=== PATIENT | female | born 1980 | race Hispanic/Latino ===

== ENCOUNTER 2022-08-01 14:14 | Emergency (ER) | payer SELFPAY ==
[2022-08-01] MEDS ORDERED: PROMETHAZINE INJ 25 MG/ML AMP ONE (14:53)
[2022-08-01] MEDS ORDERED: HYDROCODONE/CHLORPHEN 5 ML/OSYR ONE (14:54)
[2022-08-01] MEDS ORDERED: NA CHLORIDE 0.9% 1,000 ML ONE (14:54)
[2022-08-01] MEDS ORDERED: BENZONATATE 100 MG CAP PO ONE (14:54)
[2022-08-01 15:29] LABS: SARS-COV-2 RT PCR NEGATIVE (NEGATIVE)
--- NOTE | 2022-08-01 16:59 | RAD REPORT ---
EXAM DESCRIPTION: Imtiaz Single View08/01/2022 3:53 pm CLINICAL HISTORY: COUGH COMPARISON: No comparisons TECHNIQUE: Portable AP view of the chest. FINDINGS: The lungs are clear. No pneumothorax or effusion. The cardiomediastinal contours are unrem arkable. IMPRESSION: No acute cardiopulmonary process.
[2022-08-01] MEDS ORDERED: DIPHENHYDRAMINE 50 MG/ML VIAL ONE (17:34)
[2022-08-01] MEDS ORDERED: METHYLPREDNISOLONE 125 MG INJ ONE (17:34)
[2022-08-01 17:54] LABS: Absolute Lymphocytes (CBC) 0.9 K/uL (0.7-4.9); Hematocrit 35.9 % (36.0-45.0); Lymphocytes % 7.2 % (15.3-44.8); MCV 73.4 fL (80-100); RBC Red Blood Cell Count 4.89 M/uL (3.86-4.86)
[2022-08-01 18:06] LABS: Potassium 3.5 mEq/L (3.5-5.1)
--- NOTE | 2022-08-01 18:53 | RAD REPORT ---
EXAM DESCRIPTION: CT - Chest For Pe Angio - 08/01/2022 5:53 pm CLINICAL HISTORY: Cough;Dyspnea;Palpitations;SOB COMPARISON: <Comparisons> TECHNIQUE: Thin axial CT images of the chest were obtained following administration of 95 mL Isovue 370 IV contrast. Multiplanar reconstructions, and maximum intensity projection reconstructions were generated and reviewed. Exam utilizes a protocol for optimal evaluation of pulmonary arterial tree. All CT scans are performed using dose optimization technique as appropriate and may include automated exposure control or mA/KV adjustment according to patient size. FINDINGS: Pulmonary arteries are normal. No emboli or other suspicious finding. No acute or signific ant aorta findings. No mass or infiltrate in the lung parenchyma. No pleural thickening or pleural effusion. No pneumotho rax. No abnormal mediastinal or hilar masses or lymphadenopathy seen. No chest wall mass or abnormal axill iary lymphadenopathy. IMPRESSION: No evidence of acute central pulmonary emboli. Negative CT scan of the chest for other significant findings.
--- NOTE | 2022-08-01 20:19 | EDPHYS ---
Physician Documentation [facility] Name: Lianne Truong Age: 42 yrs Sex: Female : 1980 Arrival Date: 08/01/2022 Time: 14:17 Bed 4 Private MD: ED Physician Baldemar Cuellar HPI: 08/01 18:24 This 42 yrs old Female presents to ER via Ambulatory with complaints of Cough, kdr Congestion, Breathing Difficulty. 18:24 Patient presents with cough congestion shortness of breath and fever to 102 that kdr started yesterday. She also complains of generalized body aches and nausea and vomiting. Patient states that she has a child who has been sick for the past 2 to 3 days in similar circumstances. Patient has been vaccinated twice for COVID. She has had general malaise fever. On presentation the patient was very dyspneic with uncontrolled coughing and dyspnea. Onset: The symptoms/episode began/occurred gradually, yesterday. Severity of symptoms: At their worst the symptoms were severe incapacitating just prior to arrival, in the emergency department the symptoms are unchanged. The patient has not experienced similar symptoms in the past. The patient has not recently seen a physician. Historical: - Allergies: 14:26 Iodine; ll1 14:26 seafood; ll1 - PMHx: 14:26 None; ll1 - PSHx: 14:26 abd surgery; ll1 - Immunization history:: Client reports receiving the 2nd dose of the Covid vaccine. - Social history:: Smoking status: Patient denies any tobacco usage or history of. ROS: 18:24 Constitutional: Negative for fever, chills, and weight loss, Eyes: Negative for injury, kdr pain, redness, and discharge, ENT: Negative for injury, pain, and discharge, Neck: Negative for injury, pain, and swelling, Cardiovascular: Negative for chest pain, palpitations, and edema, Abdomen/GI: Negative for abdominal pain, nausea, vomiting, diarrhea, and constipation, Back: Negative for injury and pain, : Negative for injury, bleeding, discharge, and swelling, MS/Extremity: Negative for injury and deformity, Skin: Negative for injury, rash, and discoloration, Neuro: Negative for headache, weakness, numbness, tingling, and seizure activity. Psych: Negative for depression, anxiety, suicide ideation, homicidal ideation, and hallucinations, Allergy/Immunology: Negative for hives, rash, and allergies, Endocrine: Negative for neck swelling, polydipsia, polyuria, polyphagia, and marked weight changes, Hematologic/Lymphatic: Negative for swollen nodes, abnormal bleeding, and unusual bruising. 18:24 Respiratory: Positive for cough, with no reported sputum, dyspnea on exertion, shortness of breath, at rest. wheezing, Negative for hemoptysis, orthopnea, pleurisy. Exam: 18:24 Constitutional: This is a well developed, well nourished patient who is awake, alert, kdr and in no acute distress. Head/Face: Normocephalic, atraumatic. Eyes: Pupils equal round and reactive to light, extra-ocular motions intact. Lids and lashes normal. Conjunctiva and sclera are non-icteric and not injected. Cornea within normal limits. Periorbital areas with no swelling, redness, or edema. Neck: Trachea midline, no thyromegaly or masses palpated, and no cervical lymphadenopathy. Supple, full range of motion without nuchal rigidity, or vertebral point tenderness. No Meningismus. Chest/axilla: Normal chest wall appearance and motion. Nontender with no deformity. No lesions are appreciated. Cardiovascular: Regular rate and rhythm with a normal S1 and S2. No gallops, murmurs, or rubs. Normal PMI, no JVD. No pulse deficits. Abdomen/GI: Soft, non-tender, with normal bowel sounds. No distension or tympany. No guarding or rebound. No evidence of tenderness throughout. Back: No spinal tenderness. No costovertebral tenderness. Full range of motion. Skin: Warm, dry with normal turgor. Normal color with no rashes, no lesions, and no evidence of cellulitis. MS/ Extremity: Pulses equal, no cyanosis. Neurovascular intact. Full, normal range of motion. Neuro: Awake and alert, GCS 15, oriented to person, place, time, and situation. Cranial nerves II-XII grossly intact. Motor strength 5/5 in all extremities. Sensory grossly intact. Cerebellar exam normal. Normal gait. Psych: Awake, alert, with orientation to person, place and time. Behavior, mood, and affect are within normal limits. 18:24 Respiratory: moderate respiratory distress is noted, Respirations: tachypnea, Breath sounds: wheezing: that is mild, is scattered, is heard diffusely. Vital Signs: 14:29 BP 185 / 123; Pulse 120; Resp 18; Temp 98.9; Pulse Ox 96% on R/A; Weight 95.25 kg; ll1 Height 5 ft. 5 in. ; Pain 8/10; 14:32 Pulse 119; Resp 22; Pulse Ox 98% on R/A; ss 14:33 BP 181 / 104; ss 16:46 BP 151 / 94; Pulse 100; Resp 18; Pulse Ox 100% on R/A; hb 19:07 BP 153 / 94; Pulse 110; Resp 17; Pulse Ox 95% ; hb 14:29 Body Mass Index 34.95 (95.25 kg, 165.1 cm) ll1 14:29 Pain Scale: Adult ll1 MDM: 18:24 Data reviewed: vital signs, nurses notes, lab test result(s), radiologic studies. kdr 19:06 Patient medically screened. kdr 08/01 14:36 Order name: XRAY Chest (1 view) hb 08/01 14:44 Order name: D-Dimer; Complete Time: 15:24 kdr 08/01 14:32 Order name: COVID-19/FLU A+B; Complete Time: 15:48 ss 08/01 15:53 Order name: Chest Single View; Complete Time: 17:09 EDMS 08/01 17:11 Order name: CBC with Diff; Complete Time: 18:07 kdr 08/01 17:11 Order name: Chem 7; Complete Time: 18:07 kdr 08/01 17:11 Order name: CT Chest For PE Angio; Complete Time: 19:45 kdr 08/01 20:01 Order name: EKG - Nurse/Tech ms3 08/01 20:01 Order name: EKG; Complete Time: 20:01 ms3 Administered Medications: 14:55 Drug: Promethazine IVP 25 mg Route: IVP; Site: left antecubital; ss 16:00 Follow up: Response: No adverse reaction hb 15:01 Drug: Tussionex Pennkinetic ER PO Suspension 5 ml Route: PO; ss 16:00 Follow up: Response: No adverse reaction hb 15:01 Not Given (Other Intervention Used): Acetaminophen-Codeine PO (300 mg-30 mg) 1 tablet ss PO once; RASS on ADMIN: Combtv4, Very Agttd3, Agttd2, Rstlss1, AlertClm0, Drwsy-1, Lt Sdtn-2, Mod Sdtn-3, Dp Sdtn-4, UnArsble-5 15:02 Drug: NS 0.9% IV 1000 ml Route: IV; Rate: 1 bolus; Site: left antecubital; ss 16:10 Follow up: Response: No adverse reaction; IV Status: Completed infusion; IV Intake: hb 1000ml 15:02 Drug: Tessalon Perle PO 200 mg Route: PO; ss 16:00 Follow up: Response: No adverse reaction hb 17:42 Drug: diphenhydrAMINE IVP 25 mg Route: IVP; Site: left antecubital; ss 19:20 Follow up: Response: No adverse reaction ss 17:42 Drug: MethylPrednisoLONE IVP 125 mg Route: IVP; Site: left antecubital; ss 19:20 Follow up: Response: No adverse reaction ss Disposition Summary: 08/01/22 20:18 Discharge Ordered Location: Home ms3 Condition: Stable ms3 Diagnosis - Cough ms3 - Tachycardia, unspecified ms3 - Elevated blood-pressure reading, without diagnosis of hypertension ms3 Followup: ms3 - With: Ruslan Rangel DO - When: 2 - 3 days - Reason: Recheck today's complaints Forms: - Medication Reconciliation Form ms3 - Thank You Letter ms3 - Antibiotic Education ms3 - Prescription Opioid Use ms3 Signatures: Dispatcher [employer] Bob Balderas MD MD kdr Smirch, Shelby, RN RN Reyna Nassar RN RN [facility] Baldemar Cuellar DO DO ms3 Yessi Kendall RN hb
--- NOTE | 2022-08-01 20:19 | ER ---
Nurse's Notes [facility] Name: Lianne Truong Age: 42 yrs Sex: Female : 1980 Arrival Date: 08/01/2022 Time: 14:17 Bed 4 Private MD: Diagnosis: Cough;Tachycardia, unspecified;Elevated blood-pressure reading, without diagnosis of hypertension Presentation: 08/01 14:29 Chief complaint: Patient states: Cough, congestion, SOB, fever 102, N/V, and body aches ll1 since yesterday morning. Coronavirus screen: Vaccine status: Patient reports receiving the 2nd dose of the covid vaccine. Client denies travel out of the [place] in the last 14 days. congestion, cough unrelated to allergies, fatigue, fever, headache, muscle pain, nausea, vomiting. Client presents with at least one sign or symptom that may indicate coronavirus-19. Standard/surgical mask placed on the client. Ebola Screen: Patient denies travel to an Ebola-affected area in the 21 days before illness onset. Resp Distress? Mild respiratory distress is noted. Initial Sepsis Screen: Does the patient meet any 2 criteria? HR > 90 bpm. No. Patient's initial sepsis screen is negative. Does the patient have a suspected source of infection? Yes: Productive cough/pneumonia. Risk Assessment: Do you want to hurt yourself or someone else? Patient reports no desire to harm self or others. Onset of symptoms was July 31, 2022. 14:29 Method Of Arrival: Ambulatory ll1 14:29 Acuity: SCOTTY 3 ll1 Triage Assessment: 14:30 General: Appears uncomfortable, Behavior is calm, cooperative, appropriate for age. ll1 Pain: Complains of pain in head Quality of pain is described as aching. Neuro: Reports headache weakness. Respiratory: Reports shortness of breath cough that is. GI: Reports nausea, vomiting. :. Historical: - Allergies: 14:26 Iodine; ll1 14:26 seafood; ll1 - PMHx: 14:26 None; ll1 - PSHx: 14:26 abd surgery; ll1 - Immunization history:: Client reports receiving the 2nd dose of the Covid vaccine. - Social history:: Smoking status: Patient denies any tobacco usage or history of. Screenin:02 [facility] ED Fall Risk Assessment (Adult) History of falling in the last 3 months, ss including since admission No falls in past 3 months (0 pts). Abuse screen: Denies threats or abuse. Denies injuries from another. Nutritional screening: No deficits noted. Tuberculosis screening: Never had TB. Assessment: 15:07 General: Appears in no apparent distress. comfortable, Behavior is cooperative, Reports ss fever for 1-2 days, feeling ill for 1-2 days. Neuro: Level of Consciousness is awake, alert, obeys commands, Oriented to person, place, time, situation. Respiratory: Airway is patent Respiratory effort is even, unlabored, Respiratory pattern is regular, symmetrical. Respiratory: Reports cough that is hacking, persistent since yesterday. Respiratory: Respiratory effort is. Respiratory: Breath sounds are clear bilaterally. GI: Reports vomiting after coughing fit. Derm: Skin is intact, is healthy with good turgor, Skin is dry, Skin is pink, warm \T\ dry. normal. Musculoskeletal: Range of motion: intact in all extremities. 15:43 Reassessment: Pt ambulated to restroom with steady gait. Pt reports she is feeling much ss better at this time. Persistent cough has improved greatly since medication administration. 16:46 Reassessment: Patient appears in no apparent distress at this time. Patient and/or hb family updated on plan of care and expected duration. Pain level reassessed. Patient is alert, oriented x 3, equal unlabored respirations, skin warm/dry/pink. 17:53 Reassessment: Pt in CT at this time. ss 19:07 Reassessment: Patient appears in no apparent distress at this time. Patient and/or hb family updated on plan of care and expected duration. Pain level reassessed. Patient is alert, oriented x 3, equal unlabored respirations, skin warm/dry/pink. 19:52 Reassessment: Pt ambulated to the restroom with steady gait and back to bed. [email or web address] Vital Signs: 14:29 BP 185 / 123; Pulse 120; Resp 18; Temp 98.9; Pulse Ox 96% on R/A; Weight 95.25 kg; ll1 Height 5 ft. 5 in. ; Pain 8/10; 14:32 Pulse 119; Resp 22; Pulse Ox 98% on R/A; ss 14:33 BP 181 / 104; ss 16:46 BP 151 / 94; Pulse 100; Resp 18; Pulse Ox 100% on R/A; hb 19:07 BP 153 / 94; Pulse 110; Resp 17; Pulse Ox 95% ; hb 14:29 Body Mass Index 34.95 (95.25 kg, 165.1 cm) ll1 14:29 Pain Scale: Adult ll1 ED Course: 14:17 Patient arrived in ED. mr 14:26 Bob Huerta MD is Attending Physician. kdr 14:26 Arm band placed on Patient placed in an exam room, on a stretcher. ll1 14:30 Triage completed. ll1 15:01 Scarlet Waddell, KEVIN is Primary Nurse. ss 15:02 Inserted saline lock: 20 gauge in left antecubital area, using aseptic technique. Blood ss collected. 15:07 Patient has correct armband on for positive identification. Bed in low position. Call ss light in reach. 15:19 XRAY Chest (1 view) In Process Unspecified. EDMS 15:54 Chest Single View In Process Unspecified. EDMS 17:43 Chem 7 Sent. ss 17:43 CBC with Diff Sent. ss 17:55 CT Chest For PE Angio In Process Unspecified. EDMS 19:08 Attending Physician role handed off by Bob Huerta MD ms3 19:08 Baldemar Cuellar DO is Attending Physician. ms3 20:18 Ruslan Rangel DO is Referral Physician. ms3 Administered Medications: 14:55 Drug: Promethazine IVP 25 mg Route: IVP; Site: left antecubital; ss 16:00 Follow up: Response: No adverse reaction hb 15:01 Drug: Tussionex Pennkinetic ER PO Suspension 5 ml Route: PO; ss 16:00 Follow up: Response: No adverse reaction hb 15:01 Not Given (Other Intervention Used): Acetaminophen-Codeine PO (300 mg-30 mg) 1 tablet ss PO once; RASS on ADMIN: Combtv4, Very Agttd3, Agttd2, Rstlss1, AlertClm0, Drwsy-1, Lt Sdtn-2, Mod Sdtn-3, Dp Sdtn-4, UnArsble-5 15:02 Drug: NS 0.9% IV 1000 ml Route: IV; Rate: 1 bolus; Site: left antecubital; ss 16:10 Follow up: Response: No adverse reaction; IV Status: Completed infusion; IV Intake: hb 1000ml 15:02 Drug: Tessalon Perle PO 200 mg Route: PO; ss 16:00 Follow up: Response: No adverse reaction hb 17:42 Drug: diphenhydrAMINE IVP 25 mg Route: IVP; Site: left antecubital; ss 19:20 Follow up: Response: No adverse reaction ss 17:42 Drug: MethylPrednisoLONE IVP 125 mg Route: IVP; Site: left antecubital; ss 19:20 Follow up: Response: No adverse reaction ss Medication: 15:07 VIS not applicable for this client. ss Intake: 16:10 IV: 1000ml; Total: 1000ml. hb Outcome: 20:18 Discharge ordered by . ms3 Signatures: Dispatcher [employer] EDMS Bob Huerta MD MD kdr Rivera, Mary mr Scarlet Waddell RN RN ss Yessi Kendall RN RN Amadeo Kern RN RN jb4 Lewis, Lynsay, RN RN [place] Baldemar Cuellar DO DO ms3 Corrections: (The following items were deleted from the chart) 17:48 17:48 Reassessment: Patient appears in no apparent distress at this time. Patient hb and/or family updated on plan of care and expected duration. Pain level reassessed. Patient is alert, oriented x 3, equal unlabored respirations, skin warm/dry/pink. hb
[2022-08-02 01:29] VITALS: BP 155/90; TEMP 99.7; O2SAT 98
--- NOTE | 2022-08-04 17:29 | EKG ---
Test Date: 2022-08-01 Test Time: 20:10:58 History Tutor: WAI MEASUREMENT RESULTS: Intervals: Rate: 110 FL: 146 QRSD: 90 QT: 334 QTc: 452 [place]: P: 51 FL: 146 QRS: -10 T: 49 INTERPRETIVE STATEMENTS: Sinus tachycardia Otherwise normal ECG No previous ECG available for comparison Electronically Signed On 08-04-22 17:23:35 CDT by Brandan Kirby
== END 2022-08-01 20:39 | disposition home or self-care (01) ==
LOC: ER 14:14
DX: R05.9 Cough, unspecified (principal); R00.0 Tachycardia, unspecified; R03.0 Elevated blood-pressure reading, without diagnosis of hypertension; Z91.013 Allergy to seafood; Z91.048 Other nonmedicinal substance allergy status
CPT/HCPCS: 0240U; 36415; 71045; 71275; 80048; 85025; 85379; 93005; 96361; 96374; 96375; 99284; J1200; J2550; J2930; J7030; Q9967